=== PATIENT | female | born 1955 | race Caucasian/White ===

== ENCOUNTER 2016-10-01 06:07 | Inpatient (IN) | payer OTHER ==
[2016-10-01] MEDS: Lactated Ringers 1,000 ML IV SCH (06:35)
[2016-10-01 07:01] LABS: Mean Cell Volume 96.2 fl (78-100); Mean Corpuscular Hemoglobin 33.3 pg (26-32); Mean Platelet Volume 11.1 fl (6-9.5); Platelet Count 118 K/mm3 (150-450); Red Blood Count 4.24 M/mm3 (4.1-5.4); Red Cell Distribution Width 13.9 % (11.5-14.0); White Blood Count 6.3 K/mm3 (4.0-10.5)
[2016-10-01 07:19] LABS: INR 1.06 (0.8-3.0)
[2016-10-01 07:22] LABS: PTT 32.3 SECONDS (25.3-37.0)
[2016-10-01 07:28] LABS: ALBUMIN 3.9 g/dL (3.4-5.0); ALKALINE PHOSPHATASE 51 U/L (46-116); ANION GAP 15.7 MEQ/L (5-15); BLOOD UREA NITROGEN 13 mg/dL (9-20); CHLORIDE 103 mEq/L (98-107); Carbon Dioxide 25.4 mEq/L (21-32); Direct Bilirubin 0.07 MG/DL (0.0-0.2); Glucose 109 MG/DL (70-110); Potassium 4.2 mEq/L (3.5-5.1); SGOT/AST 24 U/L (15-37); SGPT/ALT 35 U/L (12-78); SODIUM 140 mEq/L (136-145); Total Protein 7.2 gm/dL (6.4-8.2)
[2016-10-01] MEDS ORDERED: Levofloxacin 500MG/100ML D5W 500 MG/100 ML BAG IV SCH (07:45)
[2016-10-01] MEDS ORDERED: Levofloxacin 500MG/100ML D5W 500 MG/100 ML BAG IV ONE ×2 (07:46→08:00)
[2016-10-01] MEDS ORDERED: Zofran 4 MG/2 ML VIAL IV ONE (08:00)
[2016-10-01] MEDS ORDERED: Zemuron 100 MG/10 ML IJ ONE (08:00)
[2016-10-01] MEDS ORDERED: Decadron 4 MG INJ IV ONE (08:00)
[2016-10-01] MEDS ORDERED: DILAUDID 2 MG INJECTION IV ONE ×2 (08:00)
[2016-10-01] MEDS ORDERED: Marcaine 0.5% SDV 10 ML IJ ONE (08:00)
[2016-10-01] MEDS ORDERED: DIPRIVAN 200 MG/20 ML IV ONE (08:00)
[2016-10-01] MEDS ORDERED: Quelicin Fliptop 200 MG/10 ML IJ ONE (08:00)
[2016-10-01] MEDS ORDERED: Versed 2 MG/2 ML Injection IV ONE (08:00)
[2016-10-01] MEDS ORDERED: ROBINUL IV ONE (08:00)
[2016-10-01] MEDS ORDERED: SUBLIMAZE 100 MCG/2 ML IV ONE (08:00)
[2016-10-01] MEDS ORDERED: BLOXIVERZ IV ONE (08:00)
[2016-10-01] MEDS ORDERED: Xopenex 1.25 MG/0.5 ML UD NEBULE IH ONE ×3 (08:07→12:51)
[2016-10-01] MEDS ORDERED: Sodium Chloride 3 ML UD NEBULES IH ONE ×2 (08:10→12:51)
[2016-10-01] MEDS ORDERED: Marcaine 0.5%/Epinephrine 10 ML ONE (08:57)
--- NOTE | 2016-10-01 09:16 | XRAY ---
Indication: Preop exam. Comparison: August 20, 2016. Standing AP and lateral left knee unchanged again demonstrating osteopenia, medial compartment joint space loss/sclerosis/spurring, posterior heterotopic ossifications, and tiny suprapatellar effusion. No new/acute findings.
[2016-10-01] MEDS ORDERED: ON-Q PUMP 1 in Marcaine Mpf 0.5% Vial 30 Ml*** 270 ML IV SCH (09:30)
[2016-10-01] MEDS ORDERED: Lactated Ringers 1,000 ML IV ONE (09:49)
[2016-10-01] MEDS ORDERED: Lactated Ringers 2,000 ML IV ONE (10:11)
[2016-10-01] MEDS ORDERED: CLINDAMYCIN-D5W 900 MG/50 ML IV ONE (12:12)
[2016-10-01] MEDS ORDERED: Narcan 0.4 MG/ML ONE (12:35)
--- NOTE | 2016-10-01 12:44 | OP ---
SURGERY DATE/TIME: 10/01/2016 0943 PREOPERATIVE DIAGNOSIS: Left knee degenerative joint disease. POSTOPERATIVE DIAGNOSIS: Left knee degenerative joint disease. PROCEDURES: 1) Left total knee arthroscopy. 2) X-ray per surgeon. 3) Long leg splint. 4) On-Q pump catheter postoperative pain. SURGEON: Ventura Acosta D.O. AIRCRAFT BODY REPAIRER: None. ANESTHESIA: Femoral nerve block and general anesthesia - Td Ramos CRNA. ESTIMATED BLOOD LOSS: 100. DESCRIPTION OF PROCEDURE: The patient is taken to the operative suite, placed in supine position, given a general anesthetic and the block. Tourniquet applied inflated, exsanguinated. Sterile air infiltration suits were used. [place] foot plate was used. A midline incision above the patella, below the tibial tubercle and then a medial parapatellar incision developed. The knee flexed up to 90 degrees. Marginal osteophytes removed. Distal femur was cut in 5 degrees of valgus and 3 degrees of external rotation. 10 mm was cut from the distal femur after a central post was placed and the cut guides were applied. A #3 [place] system was read and [place] cuts were also made. Tibial plateau was then cut for 2 mm plus from the medial tibial plateau. 9 mm plus from the lateral tibial plateau and menisci were removed. A soft tissue balance then created and a bite block used for 11 mm spacer and it was found to be stable. Patella was sized to 24 mm in length, 9 mm were removed leaving 15 mm. Post holes were developed. Keel cuts and post hole was made on the tibial plateau for #3 [place] foot plate. All components were then cemented into position starting with the tibial component followed by a femoral component, followed by patellar component. 11 mm permanent cushion enhanced polyethylene base plate and liner was then used and then tourniquet disinflated. Interrupted Ethibond after cautery controlling bleeding. Interrupted Ethibond in the medial parapatellar incision. 0 Vicryl in the subcutaneous layer, 2-0 Monocryl over a suction drain, aniyah in the skin. Xeroform, 4x4, sterile dressings applied and long leg splint. The patient is sent on to the recovery room in satisfactory condition. X-rays were reviewed preoperative, interoperative, postoperative and evaluation showing appropriate biometric measurements of the femur in the tibia and sizing for the medial tibial plateau collapse and the varus deformity seen about fourth width templating creating good visual.
[2016-10-01] MEDS ORDERED: Nubain 10 MG/ML ONE (12:50)
[2016-10-01] MEDS ORDERED: TRANDATE 100 MG/20 ML MDV FOR DRIP IV ONE (13:05)
[2016-10-01] MEDS ORDERED: SUBLIMAZE 100 MCG/2 ML ONE (13:09)
[2016-10-01] MEDS ORDERED: Morphine PCA 1 MG/ML 30 ML IV PRN (15:00)
[2016-10-01] MEDS: MORPHINE SULFATE 4 MG INJ IV SCH ×3 (15:06→18:22)
[2016-10-01] MEDS ORDERED: Ventolin Hfa MDI IH PRN (15:58)
[2016-10-01] MEDS: CLINDAMYCIN-D5W 900 MG/50 ML*** 900 MG/50 ML BAG IV SCH (18:28)
[2016-10-01] MEDS ORDERED: NON-FORMULARY ITEM (Citalopram Hydrobromide [Celexa] 40 MG) PO SCH (22:00)
[2016-10-01] MEDS ORDERED: NON-FORMULARY ITEM (Meloxicam 15 Mg [Meloxicam 15 Mg] 15 MG) PO SCH (22:00)
[2016-10-01] MEDS ORDERED: NON-FORMULARY ITEM (Divalproex Sodium [Depakote] 1,000 MG) PO SCH (22:00)
[2016-10-01] MEDS: ceLEXa 20 MG PO SCH (22:34)
[2016-10-01] MEDS: Mobic 7.5 MG PO SCH (22:36)
[2016-10-02] MEDS: CLINDAMYCIN-D5W 900 MG/50 ML*** 900 MG/50 ML BAG IV SCH ×3 (00:59→12:55)
[2016-10-02] MEDS: ENOXAPARIN SODIUM SQ SCH (10:37)
[2016-10-02] MEDS ORDERED: PHARMACY DOSING REQUIRED: MORPHINE PCA IV ONE (16:09)
[2016-10-02] MEDS: Morphine PCA 1 MG/ML 30 ML IV PRN ×2 (16:48→17:01)
[2016-10-02] MEDS: Lactated Ringers 1,000 ML IV SCH (20:13)
[2016-10-02] MEDS: ceLEXa 20 MG PO SCH (21:53)
[2016-10-02] MEDS: Mobic 7.5 MG PO SCH (22:12)
[2016-10-03] MEDS: ENOXAPARIN SODIUM SQ SCH (08:49)
[2016-10-03] MEDS: Lactated Ringers 1,000 ML IV SCH (12:56)
[2016-10-03] MEDS: Morphine PCA 1 MG/ML 30 ML IV PRN (15:22)
[2016-10-03] MEDS: PROVENTIL COMMON CANISTER IH PRN (19:31)
[2016-10-03] MEDS: Mobic 7.5 MG PO SCH (22:19)
[2016-10-03] MEDS: ceLEXa 20 MG PO SCH (22:19)
[2016-10-04] MEDS: NORCO 5/325 MG PO PRN ×2 (08:03→18:17)
[2016-10-04] MEDS: ENOXAPARIN SODIUM SQ SCH (08:03)
--- NOTE | 2016-10-04 09:02 | XRAY ---
Indication: Postop exam. Comparison: Taken earlier in the day. Portable AP/lateral left knee demonstrates interval total knee arthroplasty with intact articulation and prosthesis with a external brace. Soft tissue changes including drainage tubing and anterior cutaneous aniyah attest to recent surgery.
[2016-10-04] MEDS: PROVENTIL COMMON CANISTER IH PRN (14:27)
[2016-10-04] MEDS ORDERED: PATIENT OWN MEDICATION IH PRN ×2 (14:42→14:45)
[2016-10-04] MEDS: ceLEXa 20 MG PO SCH (21:03)
[2016-10-04] MEDS: Mobic 7.5 MG PO SCH (21:06)
[2016-10-05] MEDS: NORCO 5/325 MG PO PRN ×2 (00:33→07:03)
[2016-10-05] MEDS: Morphine PCA 1 MG/ML 30 ML IV PRN (09:14)
[2016-10-05] MEDS: ENOXAPARIN SODIUM SQ SCH (09:48)
[2016-10-05 12:04] VITALS: BP 124/55; PULSE 59; O2SAT 96
== END 2016-10-05 14:59 | disposition home health service (06) | DRG 470 ==
LOC: MED SURG 06:07 → EDSTATUS 10:24
PROVIDERS: ADMIT Orthopaedic Surgery; ATTEND Orthopaedic Surgery
PROC: 0SRD0J9 Replacement of Left Knee Joint with Synthetic Substitute, Cemented, Open Approach (ICD-10-PCS; principal; 2016-10-01)
PROC: 2W3RX1Z Immobilization of Left Lower Leg using Splint (ICD-10-PCS; 2016-10-01)
DX: M17.12 Unilateral primary osteoarthritis, left knee (principal); M25.562 Pain in left knee
CPT/HCPCS: 01382; 36415; 64447; 73560; 76942; 80053; 82248; 85027; 85610; 85730; 87086; 93005; 94640; 94760; 94762; J0330; J1100; J1170; J1650; J1956; J2250; J2270; J2300; J2310; J2405; J2704; J2710; J3010; L1830; 97110-GP; A9270-GY